=== PATIENT | male | born 1960 | race Caucasian/White ===

== ENCOUNTER 2018-07-05 19:43 | Inpatient (IN) | payer MEDICARE, OTHER ==
[2018-07-05 20:26] LABS: % BASOPHILS 0.8 % (0.0-2.0); % EOSINOPHILS 4.2 % (0.0-5.0); % LYMPHOCYTES 27.7 % (20.0-50.0); % MONOCYTES 13.2 % (2.0-10.0); % NEUTROPHILS 54.1 % (40.0-80.0); BASOPHILE ABSOLUTE 0.1 Th/cumm (0-0.2); EOSINOPHILE ABSOLUTE 0.3 Th/cmm (0.1-0.4); HEMATOCRIT 43.4 % (41.0-60); HEMOGLOBIN 13.9 gm/dL (12-16); LYMPHOCYTE ABSOLUTE 1.8 Th/cmm (1.5-3.0); MEAN CELL VOLUME 81.1 fl (80-99); MEAN CORPUSCULAR HGB CONC 32.1 pg (28.0-36.0); MEAN PLATELET VOLUME 9.4 fl; MONOCYTE ABSOLUTE 0.8 Th/cmm (0.3-1.0); NEUTROPHILE ABSOLUTE 3.4 Th/cmm (1.8-8.0); PLATELET COUNT 269 Th/cmm (150-400); RED BLOOD COUNT 5.36 Mil/cmm (4.30-5.70); RED CELL DISTRIBUTION WIDTH 16.1 % (11.5-20.0); WHITE BLOOD COUNT 6.4 Th/cmm (4.8-10.8)
[2018-07-05 20:42] LABS: ALBUMIN 3.5 gm/dL (4.2-5.5); ALKALINE PHOSPHATASE 326 U/L (34-104); ANION GAP 9.7 (7.0-16.0); BILIRUBIN,TOTAL 0.4 mg/dL (0.3-1.0); BUN - UREA NITROGEN 11 mg/dL (7-25); CALCIUM SERUM 9.6 mg/dL (8.6-10.3); CHLORIDE 97 mEq/L (98-107); CREATININE - SERUM 0.5 mg/dL (0.7-1.3); GFR AFRICAN-AMERICAN > 60.0 ml/min (>90); GFR NON AFRICAN-AMERICAN > 60.0 ml/min; GLUCOSE 102 mg/dL (70-105); POTASSIUM SERUM 3.7 mEq/L (3.5-5.1); SGOT 34 U/L (13-39); SGPT/ALT 27 U/L (7-52); SODIUM SERUM 135 mEq/L (136-145); TOTAL PROTEIN,SERUM 7.2 gm/dL (6.0-8.3)
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
[2018-07-05 22:56] VITALS: BP 111/80
[2018-07-05] MEDS ORDERED: Non-Formulary Item 1 EA (Glucagon,Human Recombinant [Glucagon Emergency Kit] 1 MG) IJ PRN (23:06)
[2018-07-05] MEDS ORDERED: GLUCAGON HCl 1 MG KIT IM PRN (23:43)
[2018-07-06 01:58] LABS: CHOLESTEROL 94 mg/dL (<200); HDL -HIGH DENSITY LIPOPROTEIN 23 mg/dL (23-92); TRIGLYCERIDES 83 mg/dL (<150)
[2018-07-06] MEDS: Levothyroxine 0.05 Mg Tab PO SCH (06:50)
[2018-07-06] MEDS: INSULIN HUMAN REGULAR 100 UNITS/ML UNIT SUBQ SCH ×2 (06:51→17:41)
[2018-07-06] MEDS ORDERED: BUMETANIDE 0.5 MG PO SCH (09:00)
[2018-07-06] MEDS ORDERED: Non-Formulary Item 1 EA (Levetiracetam [Keppra] 1,000 MG) PO SCH (09:00)
[2018-07-06] MEDS: Aspirin 81mg Chewable Tab PO SCH (10:24)
[2018-07-06] MEDS: Multivitamin w/ Minerals Tab PO SCH (10:25)
[2018-07-06] MEDS ORDERED: Albuterol/Ipratropium Neb 3 ML AERS HHN PRN (10:28)
--- NOTE | 2018-07-06 12:07 | History & Physical ---
ADMIT DATE: PATIENT IDENTIFICATION: This is a 58-year-old male. REQUESTING PHYSICIAN: Dr. Ruff. REASON FOR ADMISSION: Medical management. HISTORY OF PRESENT ILLNESS: A 58-year-old resident of [facility] noted by nursing staff that the patient was extremely agitated, aggressive and striking the wall. The patient was evaluated in the Emergency Room and admitted to Geropsych Unit for further treatment. PAST MEDICAL HISTORY: Remarkable for: 1. Diabetes mellitus. 2. Congestive heart failure. 3. Hyperlipidemia. 4. Coronary artery disease. 5. Psychotic disorder. 6. Degenerative joint disease. 7. Chronic obstructive pulmonary disease. 8. Hypertension. 9. History of carcinoma of the colon. 10. History of abdominal wall hernia. 11. Dysarthria and dysphagia. 12. Gait disturbances. MEDICATIONS AT HOME: The patient is taking multiple medications, which includes Lexapro, valproic acid, metformin, bumetanide, Synthroid, atorvastatin, Depakote, Keppra, metoprolol, and p.r.n. medication allergies. ALLERGIES: The patient is not allergic to any medication. SOCIAL HISTORY: The patient lives in a senior care. The patient has history of smoking cigarette. No alcohol or drug use. FAMILY MEDICAL HISTORY: Negative for diabetes, hypertension, kidney disease, liver disease. REVIEW OF SYSTEMS: The patient stated that he feels tired. The patient denies any chest pain, shortness of breath, palpitation, dizziness, nausea, vomiting, headache, seizure, syncopal episode. PHYSICAL EXAMINATION: GENERAL: The patient is alert, awake, oriented, lying in the bed without any acute distress. VITAL SIGNS: Temperature 98.7, pulse is 74, respiratory rate is 18, blood pressure 134/64. HEENT: Normocephalic, atraumatic. Extraocular muscles are intact. Tongue were pink and coated. Poor dentition noted. No oral lesions noted. No sinus tenderness. External auditory canal and tympanic membranes are well visualized. Absent upper and lower dentition noted. No facial asymmetry was also noted. NECK: Supple, no JVD, no bruising reflex. No lymphadenopathy, thyromegaly, or carotid bruit. HEART: Both heart sounds are regular. No S3, no S4, no murmur. CHEST AND LUNGS: Equal in expansion with no expiratory wheezing. ABDOMEN: Soft. No guarding, no rigidity. Well healed surgical scar with ventral hernia noted. Bowel sounds are present. EXTREMITIES: No edema, no cyanosis. Peripheral pulses were +1. No calf tenderness noted. Normal for spasticity involving upper and lower extremity on the left side noted with dysarthric speech noted. NEUROLOGY: Unable to assess the gait. AVAILABLE DIAGNOSTIC DATA: Performed in the Emergency Room, white count of 6.4, hemoglobin 13.9, platelet count 269. BUN and creatinine is 11 and 0.5, glucose 118, sodium 135, potassium 3.7, chloride 97, CO2 of 32, alkaline phosphatase is 326, LDL 55. Valproic acid 41.1. TSH of 1.43. CLINICAL IMPRESSION: 1. Diabetes. 2. Hypertension. 3. Hyperlipidemia. 4. Coronary artery disease. 5. Chronic obstructive pulmonary disease. 6. Degenerative joint disease. 7. History of cerebrovascular accident with left-sided weakness. 8. Seizure disorder. 9. Dysarthria. 10. History of carcinoma of colon, status post colectomy. 11. Ventral hernia. 12. High risk for fall. PLAN: 1. Monitor blood sugar and blood pressure. Continue home metformin. 2. Antihypertensive medication. 3. Fluid restrict. 4. Monitor I's and O's. 5. Antiplatelet therapy. 6. P.r.n. inhalation therapy. 7. Psych medication. 8. Psych followup. 9. General nursing care. 10. CVA prophylaxis. 11. Fall precaution. 12. Nutritional support. 13. Follow lab. 14. We will continue to follow this patient during the stay in the hospital. I sincerely thank you, Dr. Ruff, for giving me the opportunity to participate in patient of yours. JOB# [id number]
--- NOTE | 2018-07-06 13:47 | Psychiatric Evaluation ---
DATE OF SERVICE: 07/05/2018 IDENTIFYING INFORMATION: The patient is a 58-year-old male. CHIEF COMPLAINT: "I don't know." HISTORY OF PRESENT ILLNESS: The patient was transferred from [facility] because of agitated behavior. He needs medication need to be adjusted. The patient was extremely agitated, aggressive, striking the wall. He was evaluated in the Emergency Room and medically cleared, the patient himself was a poor historian, unable to give me information. He has very poor eye contact. He reports hearing voices, but unable to be specific. He said he sleeps well, eats well. He denies any intent to harm himself or anybody, unable to give much information. PAST PSYCHIATRIC HISTORY: The patient has been hospitalized before here. He reports that he never tried to harm himself; however, he is not a good historian. MEDICAL HISTORY: The patient has diabetes mellitus, congestive heart failure, hyperlipidemia, coronary artery disease, psychotic and degenerative joint disease, chronic obstructive pulmonary disease, history of carcinoma of the colon, history of abdominal wall , dysarthria, dysphagia and gait disturbance. ALLERGIES: THE PATIENT IS ALLERGIC TO LATEX AND PENICILLIN. FAMILY AND SOCIAL HISTORY: The patient reports that he was before to an [place] lady, has no children. He has some college. He used to work as a stack. Denies substance abuse. He reports that he never had substance abuse, but he is not a good historian. He used to smoke weed. MENTAL STATUS EXAMINATION: Unable to give more information on mental status examination. The patient is appropriately dressed, not very well groomed. He has poor eye contact. He was hard to give information. He was dysarthric. He was unable to tell me the date, where he is, why he is here. He knew he was 58 years of age. His long-term memory is good. His short term memory is poor. He is not sure why he is here or the reason that led to his admission. He denies any current auditory hallucinations, but he reports a history of hallucination in the past. He was acting bad at the [facility], very agitated. His insight and judgment is impaired. IMPRESSION: AXIS I: Bipolar disorder with psychosis. MEDICAL DIAGNOSES: As per Dr. Horn. PLAN: The patient will be continued with the Depakote. We will see how he does and examined the need for antipsychotic. The patient was kept on his seizure medications. I will do group therapy, milieu therapy, and individual therapy. ESTIMATED LENGTH OF STAY: 3-7 days. DISCHARGE CRITERIA: Decrease agitation. After discharge, outpatient. JOB# [id number]
[2018-07-06] MEDS ORDERED: Non-Formulary Item 1 EA (Atorvastatin Calcium [Lipitor] 20 MG) PO SCH (21:00)
[2018-07-06] MEDS: Atorvastatin Calcium 10 MG TAB PO SCH (21:09)
[2018-07-07] MEDS: Levothyroxine 0.05 Mg Tab PO SCH (06:39)
[2018-07-07] MEDS: INSULIN HUMAN REGULAR 100 UNITS/ML UNIT SUBQ SCH (06:58)
[2018-07-07] MEDS: Aspirin 81mg Chewable Tab PO SCH (09:59)
[2018-07-07] MEDS: Multivitamin w/ Minerals Tab PO SCH (10:03)
[2018-07-07] MEDS: INSULIN ASPART SLIDING SCALE 100 UNITS/ML UNIT SUBQ SCH ×2 (17:41→21:08)
[2018-07-07] MEDS: Atorvastatin Calcium 10 MG TAB PO SCH (20:47)
--- NOTE | 2018-07-07 22:13 | Progress Notes ---
DATE: 07/07/2018 SUBJECTIVE: Case was discussed with staff of the patient, reviewed records. The patient continues to be internally preoccupied. He continues to have poor insight. He is unable to carry on a conversation or make safe plan for self-care. He is unable to participate in a meaningful conversation. He continues to have agitation and aggressive behavior. He continues to be internally preoccupied. He is compliant with the medication with no side effects, no sedation, and no nausea. He is on Depakote for his behavior. We will continue to work with the patient in group therapy, milieu therapy, and adjust the medications as needed. JOB# [id number]
--- NOTE | 2018-07-07 23:14 | Progress Notes ---
DATE: 07/07/2018 SUBJECTIVE: The patient seen and examined. The patient is sitting in dining rosas. The patient is communicative. The patient denies any chest pain, shortness of breath, palpitation, dizziness, nausea, vomiting, headache. PHYSICAL EXAMINATION: VITAL SIGNS: Temperature 96.8, pulse is 64, respiratory rate 18, blood pressure 123/85. SKIN: Warm to touch. HEENT: No facial asymmetry. NECK: Supple, no JVD. HEART: Both heart sounds are regular. CHEST AND LUNG: Equal in expansion, no expiratory wheezing. ABDOMEN: Soft. No guarding, no rigidity. Bowel sounds are present. No palpable mass. EXTREMITIES: No edema, no cyanosis. NEUROLOGIC: Remarkable for left-sided weakness with spasticity. CLINICAL IMPRESSION: 1. Diabetes mellitus. 2. Hypertension. 3. Hyperlipidemia. 4. Coronary artery disease. 5. Chronic obstructive pulmonary disease. 6. Degenerative joint disease. 7. Cerebrovascular accident with left-sided weakness. 8. Seizure disorder. 9. History of CA colon, status post colectomy. 10. Ventral hernia. PLAN: 1. Diabetes management. 2. Diabetic diet. 3. Antihypertensive medicine. 4. Statin. 5. Aspirin. 6. P.r.n. inhalation therapy. 7. Fall precautions. 8. Seizure precaution. 9. Seizure medication. 10. Psych medication. 11. Psych followup. 12. We will continue to follow this patient during the stay in the hospital. I sincerely thank you Dr. Ruff to participate in the patient of yours. JOB# [id number]
[2018-07-08] MEDS: Levothyroxine 0.05 Mg Tab PO SCH (06:44)
[2018-07-08] MEDS: INSULIN ASPART SLIDING SCALE 100 UNITS/ML UNIT SUBQ SCH ×4 (06:50→20:45)
[2018-07-08] MEDS: Aspirin 81mg Chewable Tab PO SCH (08:15)
[2018-07-08] MEDS: Multivitamin w/ Minerals Tab PO SCH (08:17)
--- NOTE | 2018-07-08 13:39 | Progress Notes ---
DATE: 07/08/2018 Case was discussed with staff of the patient, reviewed records and lab work. CBC showed high monocyte. The rest within normal range. Chemistry: Low sodium, low chloride and high carbon monoxide and low creatinine. The repeat blood sugar was normal ____ high as well as low albumin and low LDL cholesterol. The rest of the lipid panel within normal range. TSH within normal range. Depakote level 48.1 which is in acceptable therapeutic range. He continues to be confused. Unable to make reasonable conversation or make safe plan for self-care. Continues poor insight. Unable to take care of himself. Needs help with his ADLs. No side effects with the medication, no sedation, no nausea and we will continue the patient in group therapy, milieu therapy, and adjust medication as needed. JOB# [id number]
[2018-07-08] MEDS: Atorvastatin Calcium 10 MG TAB PO SCH (20:18)
[2018-07-09] MEDS: Levothyroxine 0.05 Mg Tab PO SCH (06:46)
[2018-07-09] MEDS: INSULIN ASPART SLIDING SCALE 100 UNITS/ML UNIT SUBQ SCH ×4 (06:47→21:01)
[2018-07-09] MEDS: Multivitamin w/ Minerals Tab PO SCH (08:32)
[2018-07-09] MEDS: Aspirin 81mg Chewable Tab PO SCH (08:32)
[2018-07-09] MEDS: Atorvastatin Calcium 10 MG TAB PO SCH (21:00)
--- NOTE | 2018-07-10 02:13 | Progress Notes ---
DATE: 07/09/2018 SUBJECTIVE: Case was discussed with staff of the patient, reviewed records. The patient continues to be confused, unable to tell me the date, where he is, why he is here. Continues to have episodes get easily agitated, impulsive, unpredictable, needing help with his ADLs, unable to make safe plan for self-care. He has been compliant with the medication with no side effects, no sedation or nausea. RPR is nonreactive. Depakote level is 48.1, Keppra level is 49.1, which is high and will be a different dose to the medical doctor. The patient has a seizure disorder. We will continue the patient in group therapy, milieu therapy, adjust medication as needed. JOB# [id number]
[2018-07-10] MEDS: INSULIN ASPART SLIDING SCALE 100 UNITS/ML UNIT SUBQ SCH ×4 (06:56→21:05)
[2018-07-10] MEDS: Levothyroxine 0.05 Mg Tab PO SCH (07:00)
[2018-07-10] MEDS: Multivitamin w/ Minerals Tab PO SCH ×2 (09:26→09:41)
[2018-07-10] MEDS: Aspirin 81mg Chewable Tab PO SCH ×2 (09:27→09:41)
[2018-07-10] MEDS: Escitalopram Oxalate 5 mg Tab PO SCH (17:00)
[2018-07-10] MEDS ORDERED: Magnesium Hydroxide (MOM) 30 mL UDC PO PRN (19:25)
[2018-07-10] MEDS: Atorvastatin Calcium 10 MG TAB PO SCH (21:02)
--- NOTE | 2018-07-10 22:12 | Progress Notes ---
DATE: 07/10/2018 Case was discussed with staff of the patient, reviewed records. The patient continues to be isolating, continues to be unable to make safe plan for self-care or participate in a meaningful conversation. Continues to be unpredictable and impulsive. He is compliant with the medication with no side effects, no sedation, no nausea, no extrapyramidal symptoms. Appears to be depressed. I will be adding Lexapro to his medication 5 mg a day. I will continue outpatient group therapy, milieu therapy, and adjust medications as needed. JOB# [id number]
[2018-07-11] MEDS: Levothyroxine 0.05 Mg Tab PO SCH (07:04)
[2018-07-11] MEDS: INSULIN ASPART SLIDING SCALE 100 UNITS/ML UNIT SUBQ SCH ×4 (07:07→21:08)
[2018-07-11] MEDS: Escitalopram Oxalate 5 mg Tab PO SCH (09:14)
[2018-07-11] MEDS: Multivitamin w/ Minerals Tab PO SCH (09:16)
[2018-07-11] MEDS: Aspirin 81mg Chewable Tab PO SCH (09:18)
--- NOTE | 2018-07-11 11:29 | Progress Notes ---
DATE: No dictation JOB# [id number]
--- NOTE | 2018-07-11 16:16 | Progress Notes ---
DATE: 07/11/2018 SUBJECTIVE: The patient is confused, disoriented, moving head back and forth "camille, camille, camille." I did review Dr. Ruff's initial intake note. The patient poorly oriented, confused, does not know for example where he is or what is going on, aggressive towards staff, agitated towards staff, still can be violent, currently on Lexapro, Depakote. Medications reviewed. The patient is sleeping fairly well with mammography technician awakenings requiring prompting by staff for eating and ADLs for example. ASSESSMENT: Ongoing symptoms, confusion, combative behaviors. PLAN: Continue Lexapro, Depakote. We will titrate and adjust medications. The patient remains symptomatic, not safe for a lower level of care. JOB# [id number]
[2018-07-11] MEDS: Atorvastatin Calcium 10 MG TAB PO SCH (20:58)
--- NOTE | 2018-07-11 23:07 | Progress Notes ---
DATE: 07/11/2018 NO DICTATION JOB# [id number]
[2018-07-12] MEDS: Levothyroxine 0.05 Mg Tab PO SCH (06:35)
[2018-07-12] MEDS: INSULIN ASPART SLIDING SCALE 100 UNITS/ML UNIT SUBQ SCH ×4 (06:35→21:20)
[2018-07-12] MEDS: Aspirin 81mg Chewable Tab PO SCH (09:43)
[2018-07-12] MEDS: Multivitamin w/ Minerals Tab PO SCH (09:44)
[2018-07-12] MEDS: Escitalopram Oxalate 5 mg Tab PO SCH (09:44)
--- NOTE | 2018-07-12 12:15 | Progress Notes ---
DATE: 07/12/2018 SUBJECTIVE: The patient noted to be calmer, seems to be eating better, no behavior, still certainly confused, disoriented, not a very good historian, remains somewhat impulsive, unpredictable, somewhat restless on exam. ASSESSMENT: The patient remains impulsive, unpredictable, poor historian. Staff noting improvement, calmer. PLAN: We will continue to monitor, titrate and adjust medications. Given ongoing symptoms, he is not safe for discharge at this time. JOB# [id number]
--- NOTE | 2018-07-12 16:50 | Progress Notes ---
DATE: 07/12/2018 SUBJECTIVE: The patient seen and examined. The patient is much calmer, eating better. No chest pain, shortness of breath, palpitation, dizziness or nausea. PHYSICAL EXAMINATION: VITAL SIGNS: Temperature is 97.6, pulse is 56, respiratory rate 18, blood pressure 125/56. HEENT: Remarkable for no facial asymmetry. Tongue more pink and coated. Poor dentition noted. NECK: Supple, no JVD. HEART: Regular. CHEST AND LUNGS: Equal in expansion, no expiratory wheezing. ABDOMEN: Soft. No guarding or rigidity. Bowel sounds present. No palpable mass. EXTREMITIES: No edema. NEUROLOGIC: Remarkable for spasticity involving upper and lower extremity on the left side. CLINICAL IMPRESSION: 1. Diabetes. 2. Hypertension. 3. Hyperlipidemia. 4. Coronary artery disease. 5. Seizure disorder. 6. Cerebrovascular accident with left-sided weakness. 7. Degenerative joint disease. 8. Ventral hernia. 9. History of carcinoma of colon. PLAN: 1. Monitor blood sugar. 2. Metformin. 3. Low sodium diet. 4. Antihypertensive medicine. 5. Statin. 6. Aspirin. 7. P.r.n., inhalation therapy. 8. Nutritional support. 9. Fall precaution. 10. Seizure medication. 11. Seizure precaution. 12. General nursing care. 13. Watch for signs and symptoms of bowel obstruction. 14. Care plan reviewed and discussed with staff. JOB# [id number]
[2018-07-12] MEDS: Atorvastatin Calcium 10 MG TAB PO SCH (20:49)
[2018-07-13] MEDS: Levothyroxine 0.05 Mg Tab PO SCH (06:32)
[2018-07-13] MEDS: INSULIN ASPART SLIDING SCALE 100 UNITS/ML UNIT SUBQ SCH ×4 (06:32→21:45)
[2018-07-13] MEDS: Multivitamin w/ Minerals Tab PO SCH (08:42)
[2018-07-13] MEDS: Aspirin 81mg Chewable Tab PO SCH (08:42)
[2018-07-13] MEDS: Escitalopram Oxalate 5 mg Tab PO SCH (08:44)
--- NOTE | 2018-07-13 10:24 | Progress Notes ---
DATE: 07/13/2018 THE PATIENT'S ID: A 58-year-old male. SUBJECTIVE: The patient seen and examined. The patient is sitting in the wheelchair. The patient is very calm, cooperative. The patient denies any chest pain, shortness of breath, palpitation, dizziness, nausea, vomiting. Glucoscan is reviewed. PHYSICAL EXAMINATION: VITAL SIGNS: On today's exam, temperature 97.3, pulse 78, respiratory rate 18, blood pressure 132/70. HEENT: Poor dentition. NECK: Supple, no JVD. HEART: Regular. CHEST AND LUNGS: Equal in expansion, no expiratory wheezing. ABDOMEN: Soft. No guarding, no rigidity. Bowel sounds present. No palpable mass. EXTREMITIES: No edema. NEUROLOGIC: Remarkable for left-sided weakness. CLINICAL IMPRESSION: 1. Diabetes. 2. Hypertension. 3. Seizure disorder. 4. Chronic obstructive pulmonary disease. 5. Coronary artery disease. 6. Cerebrovascular accident with left-sided weakness. 7. Degenerative joint disease. 8. Psychotic disorder exacerbation. PLAN: 1. Oral hypoglycemic agent with sliding scale insulin. 2. Antihypertensive medicine. 3. Cerebrovascular accident prophylaxis. 4. Fall precaution. 5. P.r.n. inhalation therapy. 6. Seizure medication. 7. Seizure precaution. 8. General nursing care. 9. Nutritional support. 10. Care plan reviewed and discussed with staff. JOB# [id number]
[2018-07-13] MEDS: Atorvastatin Calcium 10 MG TAB PO SCH (21:38)
[2018-07-13] MEDS: Maalox 30 mL Cup PO PRN (22:59)
--- NOTE | 2018-07-14 00:09 | Progress Notes ---
DATE: 07/13/2018 Case was discussed with staff of the patient, reviewed records. The patient continues to be confused, unable to make safe plan for self-care though he is reportedly going to groups. He is disoriented, impulsive, unpredictable, needing redirection. He is compliant with the medication with no side effects, no sedation, no nausea. He is a little bit more energetic attending groups and will continue outpatient group therapy, milieu therapy, adjust medication as needed. JOB# [id number]
[2018-07-14] MEDS: Levothyroxine 0.05 Mg Tab PO SCH (06:40)
[2018-07-14] MEDS: INSULIN ASPART SLIDING SCALE 100 UNITS/ML UNIT SUBQ SCH ×4 (06:47→21:21)
[2018-07-14] MEDS: Escitalopram Oxalate 5 mg Tab PO SCH (08:33)
[2018-07-14] MEDS: Aspirin 81mg Chewable Tab PO SCH (08:34)
[2018-07-14] MEDS: Multivitamin w/ Minerals Tab PO SCH (08:34)
--- NOTE | 2018-07-14 17:49 | Progress Notes ---
DATE: 07/14/2018 Case was discussed with staff of the patient, reviewed records. The patient continues to stay to himself, not participating much, unable to express himself. He is sleeping well, eating well, has been compliant with the medication with no side effects, seem like his energy improved since adding Lexapro, I will be increasing the dose to 10 mg a day. No side effects with the medication, no sedation, no nausea. Depakote level is still pending and we will continue to work with the patient in group therapy, milieu therapy, adjust the medication as needed. JOB# [id number]
[2018-07-14] MEDS: Atorvastatin Calcium 10 MG TAB PO SCH (21:19)
[2018-07-15] MEDS: INSULIN ASPART SLIDING SCALE 100 UNITS/ML UNIT SUBQ SCH ×4 (06:57→20:39)
[2018-07-15] MEDS: Levothyroxine 0.05 Mg Tab PO SCH (06:57)
[2018-07-15] MEDS: Aspirin 81mg Chewable Tab PO SCH (08:52)
[2018-07-15] MEDS: Multivitamin w/ Minerals Tab PO SCH (08:52)
--- NOTE | 2018-07-15 10:12 | Progress Notes ---
DATE: 07/15/2018 Case was discussed with staff of the patient, reviewed records. The patient continues to be confused, demented, unable to make safe plan for self-care, unable to carry on a conversation, needing redirection. The Lexapro be increased today and he generally continues to have episodes of agitation, irritability, depressed. No side effects from the medication, no sedation, no nausea and we will continue to work with the patient in group therapy, milieu therapy, and adjust the medications as needed. JOB# [id number]
[2018-07-15] MEDS: Atorvastatin Calcium 10 MG TAB PO SCH (20:39)
[2018-07-16] MEDS: Levothyroxine 0.05 Mg Tab PO SCH (06:42)
[2018-07-16] MEDS: INSULIN ASPART SLIDING SCALE 100 UNITS/ML UNIT SUBQ SCH ×4 (06:43→20:21)
[2018-07-16] MEDS: Multivitamin w/ Minerals Tab PO SCH (08:15)
[2018-07-16] MEDS: Aspirin 81mg Chewable Tab PO SCH (08:16)
--- NOTE | 2018-07-16 12:59 | Progress Notes ---
DATE: 07/16/2018 SUBJECTIVE: Case was discussed with staff of the patient, reviewed records. The patient continues to be unpredictable, impulsive, needing redirection. He continues to have poor insight. Continues to be easily agitated, confused, unable to make safe plan for self-care, demented, unable to tell me the date, where he is, why he is here, can hardly answer questions. I will be adding Aricept to his medication to help improve, hopefully his cognition though it may not working for him and he is only allergic to Lasix and his lab work shows only blood sugar that is high last one on ____, it was repeated yesterday again and later it was 76. So no Depakote level done yet, so I will be ordering a Depakote level on the patient to be checked and so far no side effects with the medication, no sedation, no nausea and we will continue outpatient group therapy, milieu therapy, adjust medication as needed. JOB# [id number]
[2018-07-16] MEDS: Atorvastatin Calcium 10 MG TAB PO SCH (21:16)
[2018-07-17] MEDS: INSULIN ASPART SLIDING SCALE 100 UNITS/ML UNIT SUBQ SCH ×4 (06:39→21:20)
[2018-07-17] MEDS: Levothyroxine 0.05 Mg Tab PO SCH (06:39)
[2018-07-17] MEDS: Aspirin 81mg Chewable Tab PO SCH (08:34)
[2018-07-17] MEDS: Multivitamin w/ Minerals Tab PO SCH (08:40)
[2018-07-17] MEDS: Atorvastatin Calcium 10 MG TAB PO SCH (21:17)
--- NOTE | 2018-07-17 22:58 | Progress Notes ---
DATE: 07/17/2018 Case was discussed with staff of the patient, reviewed records. The patient continues to be confused, unpredictable, impulsive, and needing redirection. His Depakote level is 46.9, which is within acceptable therapeutic range. Continues to have poor insight, unable to carry on a conversation or make safe plan for self-care. I initiated Aricept on him yesterday with no side effects. We will continue to work with the patient in group therapy, milieu therapy, and adjust the medications as needed. JOB# [id number]
[2018-07-18] MEDS: Levothyroxine 0.05 Mg Tab PO SCH (06:42)
[2018-07-18] MEDS: INSULIN ASPART SLIDING SCALE 100 UNITS/ML UNIT SUBQ SCH ×4 (06:44→20:59)
[2018-07-18] MEDS: Aspirin 81mg Chewable Tab PO SCH (09:04)
[2018-07-18] MEDS: Multivitamin w/ Minerals Tab PO SCH (09:04)
[2018-07-18] MEDS: Atorvastatin Calcium 10 MG TAB PO SCH (20:50)
--- NOTE | 2018-07-18 21:08 | Progress Notes ---
DATE: 07/18/2018 SUBJECTIVE: Case was discussed with staff of the patient, reviewed records. The patient continues to be easily agitated, unable to make safe plan for self-care, confused, continues to have poor insight, hard to understand what he says. I did initiate Aricept on him. His Depakote level was 46.9, which is below acceptable therapeutic range; however, he has not taken it for seizure disorder and so far he is also on Lexapro 10 mg a day with no side effects, no sedation, no nausea. I will continue outpatient group therapy, milieu therapy, adjust medications as needed. JOB# [id number]
[2018-07-19] MEDS: Levothyroxine 0.05 Mg Tab PO SCH (06:46)
[2018-07-19] MEDS: INSULIN ASPART SLIDING SCALE 100 UNITS/ML UNIT SUBQ SCH ×4 (06:57→21:10)
[2018-07-19] MEDS: Multivitamin w/ Minerals Tab PO SCH (09:07)
[2018-07-19] MEDS: Aspirin 81mg Chewable Tab PO SCH (09:07)
--- NOTE | 2018-07-19 16:16 | Progress Notes ---
DATE: 07/19/2018 SUBJECTIVE: Case was discussed with staff of the patient, reviewed records. The patient continued to be unpredictable and impulsive. He is demented, confused, unable to make safe plan for self-care and is able, however, to feed himself. He needs a lot of redirection and help with his ADLs. He is compliant with the medication with no side effects, no sedation, no nausea. He tolerated adding of Aricept 5 mg at bedtime. I will continue outpatient group therapy, milieu therapy, adjust medication as needed. JOB# [id number]
[2018-07-19] MEDS: Atorvastatin Calcium 10 MG TAB PO SCH (20:51)
[2018-07-20] MEDS: INSULIN ASPART SLIDING SCALE 100 UNITS/ML UNIT SUBQ SCH ×3 (06:39→16:12)
[2018-07-20] MEDS: Levothyroxine 0.05 Mg Tab PO SCH (06:39)
[2018-07-20] MEDS: Aspirin 81mg Chewable Tab PO SCH (08:24)
[2018-07-20] MEDS: Multivitamin w/ Minerals Tab PO SCH (08:29)
--- NOTE | 2018-07-20 13:28 | Discharge Summary ---
DATE OF DISCHARGE: 07/20/2018 IDENTIFYING INFORMATION: The patient is a 58-year-old male. CHIEF COMPLAINT: "I don't know." HISTORY OF PRESENT ILLNESS: The patient was transferred from [facility] because of agitated behavior and he continues to be adjusted. The patient was extremely agitated, aggressive, and striking the wall. He was evaluated in the Emergency Room and medically cleared. The patient himself was a poor historian, unable to give information. He has very poor eye contact. He reports hearing voices, unable to be specific. He said he sleeps well, eats well. He denies any intent to harm himself or anybody, unable to give much information. PAST PSYCHIATRIC HISTORY: The patient has been hospitalized before here. He reports that he never tried to harm himself; however, he is not a good historian. MEDICAL HISTORY: Diabetes mellitus, congestive heart, hyperlipidemia, coronary artery disease, degenerative joint disease, COPD, history of carcinoma of the colon, history of abdominal wall hernia, dysarthria and dysphagia and gait disturbance. ALLERGIES: HE IS ALLERGIC TO PENICILLIN. FAMILY HISTORY: The patient reports he is for once o an [place] lady, no children. He has some college education. He used to work as a stack. Denies substance abuse. Never had substance abuse problem. COURSE IN THE HOSPITAL: The patient was diagnosed with bipolar disorder with psychosis. The patient was continued with Depakote. The patient progressively got better. He was no longer agitated or acting out. He was responding well to direction. He was sleeping well and eating well. He was continued with Depakote 500 mg twice a day. The patient was also demented, so I added Aricept 5 mg at bedtime and Lexapro was added and increased to 10 mg a day because of his depressive symptoms. He has no energy, no motivation, poor concentration. He was also continued with Keppra 1000 mg twice a day and he was on atorvastatin, Bumex, albuterol inhaler, levothyroxine, and metformin 850 mg twice a day, metoprolol 12.5 mg twice a day, multivitamin. The patient progressively got better. So as he improved, he was no longer acting aggressive. He was sleeping well and eating well. We felt he could be discharged to a lesser level of care. FINAL DIAGNOSIS: Bipolar disorder, mixed. MEDICAL DIAGNOSES: Chronic obstructive pulmonary disease, hypertension, hyperlipidemia, diabetes mellitus, degenerative joint disease. FOLLOWUP: The patient will follow up with the psychiatrist, primary care physician and therapist. EXPECTED OUTCOME: Stable if the patient complies with the above. JOB# [id number]
[2018-07-20] MEDS: Maalox 30 mL Cup PO PRN (13:36)
--- NOTE | 2018-07-20 21:46 | Progress Notes ---
DATE: 07/20/2018 SUBJECTIVE: The patient seen and examined. The patient is lying in the bed. He is very calm and cooperative. The patient denies any chest pain, shortness of breath, palpitation, dizziness, nausea, or vomiting. PHYSICAL EXAMINATION: VITAL SIGNS: Temperature 98, pulse 64, respiratory rate 18, blood pressure 140/80. HEENT: No facial asymmetry. NECK: Supple, no JVD. HEART: Regular. CHEST AND LUNGS: Equal in expansion, no expiratory wheezing. ABDOMEN: Soft. No guarding, no rigidity. Liver and spleen, not palpable. EXTREMITIES: No edema, no cyanosis. NEUROLOGIC: Remarkable for left-sided weakness. LABORATORY DATA: Glucoscan is reviewed. CLINICAL IMPRESSION: 1. Diabetes. 2. Hypertension. 3. Seizure disorder. 4. Coronary artery disease. 5. Psychotic disorder. 6. Chronic obstructive pulmonary disease 7. Cerebrovascular accident with left-sided weakness 8. Degenerative joint disease. PLAN: 1. Oral hypoglycemic agent with sliding scale insulin. 2. Antihypertensive medication. 3. CVA prophylaxis. 4. Seizure medication. 5. Seizure precaution. 6. General nursing care. 7. Nutritional support. 8. Fall precautions. 9. Psych medication and psych followup. 10. Care plan reviewed and discussed with staff. JOB# [id number]
== END 2018-07-20 18:00 | DRG 885 ==
LOC: ER 19:43 → GERO 21:00
PROVIDERS: ADMIT Psychiatry & Neurology Psychiatry; ATTEND Psychiatry & Neurology Psychiatry
DX: F31.60 Bipolar disorder, current episode mixed, unspecified (principal); I11.0 Hypertensive heart disease with heart failure; I69.954 Hemiplegia and hemiparesis following unspecified cerebrovascular disease affecting left non-dominant side; F23 Brief psychotic disorder; E11.9 Type 2 diabetes mellitus without complications; E78.5 Hyperlipidemia, unspecified; I25.10 Atherosclerotic heart disease of native coronary artery without angina pectoris; J44.9 Chronic obstructive pulmonary disease, unspecified; M19.90 Unspecified osteoarthritis, unspecified site; G40.909 Epilepsy, unspecified, not intractable, without status epilepticus; K43.9 Ventral hernia without obstruction or gangrene; I50.9 Heart failure, unspecified; R47.1 Dysarthria and anarthria; Z85.038 Personal history of other malignant neoplasm of large intestine; Z91.81 History of falling; Z88.8 Allergy status to other drugs, medicaments and biological substances; Z79.84 Long term (current) use of oral hypoglycemic drugs; Z88.0 Allergy status to penicillin; Z85.118 Personal history of other malignant neoplasm of bronchus and lung
CPT/HCPCS: 36415-UA; 80053-TC; 80061-TC; 80164-TC; 80299-90; 82948-90; 83036-90; 84443-TC; 85025-TC; 86592-TC; 90899; 93005; 94640; 94760; G0410; J1815; Z7610